=== PATIENT | female | born 1980 | race Two or more races ===

== ENCOUNTER → 2019-07-20 | Outpatient (CLI) | payer OTHER | END | disposition home or self-care (01) | LOC: PRENATAL 13:30 | DX: O34.211 Maternal care for low transverse scar from previous cesarean delivery (principal); O09.521 Supervision of elderly multigravida, first trimester; O35.3XX1 Maternal care for (suspected) damage to fetus from viral disease in mother, fetus 1; O99.211 Obesity complicating pregnancy, first trimester ==